=== PATIENT | male | born 1990 | race Caucasian/White ===

== ENCOUNTER 2017-04-27 15:24 | Inpatient (IN) | payer MEDICAID, OTHER ==
[~2017-04-27] VITALS: Ht 185.4 cm; Wt 120.7 kg
[2017-04-27] MEDS ORDERED: MORPHINE SULFATE 4 MG/ML CPJ (NOT FOR IM USE) IV STA (18:41)
[2017-04-27] MEDS ORDERED: PANTOPRAZOLE SODIUM 40 MG/VIAL IV STA (18:41)
[2017-04-27] MEDS ORDERED: SODIUM CHLORIDE 0.9% 1,000 ML IV ONE (18:41)
[2017-04-27] MEDS ORDERED: ONDANSETRON HCL 4MG/2ML VIAL IV STA (18:41)
[2017-04-27 19:09] LABS: HEMATOCRIT. 43.3 % (42.0-52.0); HEMOGLOBIN. 15.3 g/dL (14.0-18.0); MEAN CORPUSCULAR HEMOGLOBIN 31.9 pg (28.0-32.0); MEAN CORPUSCULAR VOLUME 90.3 fL (80.0-94.0); MEAN PLATELET VOLUME 7.8 fl (7.4-10.4); PLATELET 351 x1000/uL (130-400); RED CELL DISTRIBUTION WIDTH 13.1 % (11.6-14.6)
[2017-04-27 19:16] LABS: PROTHROMBIN TIME 10.6 sec (9.4-11.6)
[2017-04-27 19:24] LABS: CARBON DIOXIDE 26 mEq/L (21-32); CHLORIDE 104 mEq/L (98-107); ETHANOL BLOOD < 10 mg/dL
[2017-04-27 19:27] LABS: TROPONIN I < 0.02 ng/mL (0.00-0.04)
[2017-04-27] MEDS ORDERED: SODIUM CHLORIDE 0.9% 1000ML BAG (SEPSIS BOLUS) IV ONE (19:45)
[2017-04-27 19:59] LABS: PLATELET ESTIMATE NORMAL
[2017-04-27 20:02] LABS: CLARITY URINE CLEAR (CLEAR); COLOR URINE YELLOW (YELLOW); KETONES URINE 3+ (NEGATIVE); LEUKOCYTE ESTERASE URINE NEGATIVE (NEGATIVE); NITRITE URINE NEGATIVE (NEGATIVE); OCCULT BLOOD URINE NEGATIVE (NEGATIVE); PH URINE 8.5 (4.5-8.0); PROTEIN URINE NEGATIVE (NEGATIVE); SPECIFIC GRAVITY URINE 1.032 (1.005-1.030); UROBILINOGEN URINE 0.2 E.U./dL (0.2-1.0)
[2017-04-27] MEDS ORDERED: DIPHENHYDRAMINE 50MG/ML VIAL IV ONE (21:30)
[2017-04-27] MEDS ORDERED: METOCLOPRAMIDE HCL 10MG/2ML VIAL IV ONE (21:30)
[2017-04-27] MEDS ORDERED: ONDANSETRON HCL 4MG/2ML VIAL IV ONE (23:30)
[2017-04-28] VITALS (7 sets, daily range): BP systolic 132–145; BP diastolic 78–94
[2017-04-28] MEDS ORDERED: MAGNESIUM/ALUMINUM HYDROXIDE/SIMETHICONE 30ML UDC PO PRN (00:45)
[2017-04-28] MEDS ORDERED: CLONIDINE 0.1MG TABLET PO PRN (00:45)
[2017-04-28] MEDS ORDERED: DIPHENHYDRAMINE 50MG/ML VIAL IV PRN (00:45)
[2017-04-28] MEDS: ONDANSETRON HCL 4MG/2ML VIAL IV PRN ×2 (02:23→18:33)
[2017-04-28] MEDS: MORPHINE SULFATE 2 MG/ML CPJ (NOT FOR IM USE) IV PRN ×3 (02:23→23:45)
[2017-04-28] MEDS: LORAZEPAM 1MG TABLET PO PRN ×3 (02:23→23:45)
[2017-04-28] MEDS: SODIUM CHLORIDE 0.9% 1,000 ML IV SCH ×4 (02:25→23:46)
[2017-04-28 07:41] LABS: BASOPHILS % 0.1 % (0.0-2.0); HEMATOCRIT. 42.9 % (42.0-52.0); HEMOGLOBIN. 14.3 g/dL (14.0-18.0); LYMPHOCYTES % 9.4 % (20.0-50.0); MEAN CORPUSCULAR HEMOGLOBIN 30.7 pg (28.0-32.0); MEAN PLATELET VOLUME 8.1 fl (7.4-10.4); MONOCYTES % 8.1 % (2.0-8.0); NEUTROPHILS % 82.4 % (40.0-76.0); PLATELET 336 x1000/uL (130-400); RED BLOOD CELL COUNT 4.66 mill/uL (4.7-6.1); RED CELL DISTRIBUTION WIDTH 12.9 % (11.6-14.6)
[2017-04-28] MEDS: PANTOPRAZOLE SODIUM 40 MG/VIAL IV SCH (09:21)
[2017-04-28 14:57] LABS: *AMPHETAMINES SCREEN URINE NEGATIVE (NEGATIVE); *BARBITURATES SCREEN URINE NEGATIVE (NEGATIVE); *BENZODIAZEPINES SCREEN URINE NEGATIVE (NEGATIVE); *COCAINE SCREEN URINE NEGATIVE (NEGATIVE); CANNABINOID URINE SCREEN PRESUMTIVE POSITIVE (NEGATIVE); METHADONE URINE SCREEN NEGATIVE (NEGATIVE); OPIATES URINE SCREEN NEGATIVE (NEGATIVE); PHENCYCLIDINE URINE SCREEN NEGATIVE (NEGATIVE)
[2017-04-28] MEDS: ACETAMINOPHEN 325MG TABLET PO PRN (20:09)
[2017-04-29] VITALS: BP 140/87
[2017-04-29 04:00] VITALS: BP 132/89
[2017-04-29] MEDS: SODIUM CHLORIDE 0.9% 1,000 ML IV SCH ×2 (05:40→14:04)
[2017-04-29 08:00] VITALS: BP_SYST 148
[2017-04-29] MEDS: PANTOPRAZOLE SODIUM 40 MG/VIAL IV SCH (10:18)
[2017-04-29] MEDS: ONDANSETRON HCL 4MG/2ML VIAL IV PRN ×2 (10:34→22:02)
[2017-04-29 12:00] VITALS: BP 146/93
[2017-04-29] MEDS: ACETAMINOPHEN 325MG TABLET PO PRN (14:04)
[2017-04-29 16:00] VITALS: BP 145/97
[2017-04-29] MEDS ORDERED: SODIUM CHLORIDE 0.9% 1,000 ML IV SCH (18:29)
[2017-04-29 20:00] VITALS: BP 148/98
[2017-04-29] MEDS: MORPHINE SULFATE 2 MG/ML CPJ (NOT FOR IM USE) IV PRN (22:03)
[2017-04-30] VITALS: BP 135/85
[2017-04-30 04:00] VITALS: BP 142/92
[2017-04-30 08:00] VITALS: BP 135/96
[2017-04-30] MEDS: ACETAMINOPHEN 325MG TABLET PO PRN (09:27)
[2017-04-30] MEDS: PANTOPRAZOLE SODIUM 40 MG/VIAL IV SCH (09:27)
[2017-04-30 11:47] VITALS: BP 135/96
== END 2017-04-30 12:15 | disposition home or self-care (01) | DRG 249 ==
LOC: ER 15:31 → 6EST 19:49 → EDBEDREQ 19:58 → EDBEDREQTM 19:58 → EDBEDREQSVC 19:58 → ENRESERV 23:03
PROVIDERS: ADMIT Internal Medicine; ATTEND Internal Medicine
DX: K52.9 Noninfective gastroenteritis and colitis, unspecified (principal); I10 Essential (primary) hypertension; F41.9 Anxiety disorder, unspecified; Z87.11 Personal history of peptic ulcer disease; Z86.718 Personal history of other venous thrombosis and embolism
CPT/HCPCS: 36415; 71010; 74176; 80053; 80305; 81003; 83605; 83690; 84484; 85025; 85610; 86850; 86900; 87015; 87040; 87045; 87086; 87427; 87449; 87493; 93005; 96361; 96374; 96375; 96376; 99285; C9113; G0482; J1200; J2270; J2405; J2765; J7030; J7040

== ENCOUNTER 2017-07-12 16:28 | Emergency (ER) | payer SELFPAY ==
[~2017-07-12] VITALS: Ht 172.7 cm; Wt 109.0 kg
[2017-07-12 16:39] VITALS: BP 151/106
== END 2017-07-12 19:03 | disposition left against medical advice (07) ==
LOC: ER 16:42
DX: Z53.21 Procedure and treatment not carried out due to patient leaving prior to being seen by health care provider (principal)

== ENCOUNTER 2017-07-13 12:05 | Emergency (ER) | payer MEDICAID ==
[~2017-07-13] VITALS: Ht 177.8 cm; Wt 109.0 kg
[2017-07-13] MEDS ORDERED: ONDANSETRON HCL 4MG/2ML VIAL IV STA (12:20)
[2017-07-13] MEDS ORDERED: MORPHINE SULFATE 4 MG/ML CPJ (NOT FOR IM USE) IV STA (12:20)
[2017-07-13] MEDS ORDERED: SODIUM CHLORIDE 0.9% 1,000 ML IV ONE (12:20)
[2017-07-13 12:50] LABS: BASOPHILS % 0.2 % (0.0-2.0); HEMATOCRIT. 48.4 % (42.0-52.0); HEMOGLOBIN. 16.8 g/dL (14.0-18.0); LYMPHOCYTES % 12.9 % (20.0-50.0); MEAN CORPUSCULAR HEMOGLOBIN 31.5 pg (28.0-32.0); MEAN CORPUSCULAR VOLUME 90.7 fL (80.0-94.0); MEAN PLATELET VOLUME 7.7 fl (7.4-10.4); MONOCYTES % 13.3 % (2.0-8.0); NEUTROPHILS % 73.6 % (40.0-76.0); PLATELET 316 x1000/uL (130-400); RED BLOOD CELL COUNT 5.34 mill/uL (4.7-6.1); RED CELL DISTRIBUTION WIDTH 13.3 % (11.6-14.6)
[2017-07-13 12:57] LABS: INR 1.1; PROTHROMBIN TIME 10.9 sec (9.4-11.6)
[2017-07-13 13:01] LABS: CHLORIDE 103 mEq/L (98-107)
[2017-07-13 14:22] VITALS: BP 123/69
== END 2017-07-13 14:26 | disposition home or self-care (01) ==
LOC: ER 13:18
DX: R11.2 Nausea with vomiting, unspecified (principal); G43.A0 Cyclical vomiting, in migraine, not intractable; I10 Essential (primary) hypertension; Z86.718 Personal history of other venous thrombosis and embolism
CPT/HCPCS: 36415; 80053; 83690; 85025; 85610; 96361; 96374; 96375; 99284; J2270; J2405; J7030; Z7610

== ENCOUNTER 2017-07-14 05:27 | Emergency (ER) | payer MEDICAID ==
[~2017-07-14] VITALS: Ht 177.8 cm; Wt 109.0 kg
[2017-07-14] MEDS ORDERED: FAMOTIDINE 20MG/2ML VIAL IV STA (09:20)
[2017-07-14] MEDS ORDERED: SODIUM CHLORIDE 0.9% 1,000 ML IV ONE ×2 (09:20→12:58)
[2017-07-14] MEDS ORDERED: ONDANSETRON HCL 4MG/2ML VIAL IV STA ×3 (09:20→14:42)
[2017-07-14] MEDS ORDERED: MORPHINE SULFATE 4 MG/ML CPJ (NOT FOR IM USE) IV NR (09:41)
[2017-07-14 09:47] LABS: HEMATOCRIT. 48.1 % (42.0-52.0); HEMOGLOBIN. 16.5 g/dL (14.0-18.0); MEAN CORPUSCULAR HEMOGLOBIN 31.3 pg (28.0-32.0); MEAN CORPUSCULAR VOLUME 91.2 fL (80.0-94.0); PLATELET 324 x1000/uL (130-400); RED BLOOD CELL COUNT 5.28 mill/uL (4.7-6.1); RED CELL DISTRIBUTION WIDTH 13.4 % (11.6-14.6)
[2017-07-14 09:53] LABS: CHLORIDE 97 mEq/L (98-107)
[2017-07-14 09:54] LABS: INR 1.1
[2017-07-14 09:57] LABS: ETHANOL BLOOD < 10 mg/dL
[2017-07-14 10:18] LABS: PLATELET ESTIMATE NORMAL
[2017-07-14 10:46] LABS: CLARITY URINE CLEAR (CLEAR); COLOR URINE YELLOW (YELLOW); KETONES URINE 4+ (NEGATIVE); LEUKOCYTE ESTERASE URINE NEGATIVE (NEGATIVE); NITRITE URINE NEGATIVE (NEGATIVE); OCCULT BLOOD URINE NEGATIVE (NEGATIVE); PROTEIN URINE 1+ (NEGATIVE)
[2017-07-14] MEDS ORDERED: KETOROLAC 30MG/ML VIAL IV STA (13:03)
[2017-07-14] MEDS ORDERED: IOHEXOL-300 100 ML BOTTLE ONE (14:17)
[2017-07-14] MEDS ORDERED: METOCLOPRAMIDE HCL 10MG/2ML VIAL IM STA (14:19)
[2017-07-14] MEDS ORDERED: ONDANSETRON HCL 4MG/2ML VIAL IM ONE (14:30)
[2017-07-14] MEDS ORDERED: METOCLOPRAMIDE HCL 10MG/2ML VIAL IV STA (14:42)
[2017-07-14 16:14] LABS: *AMPHETAMINES SCREEN URINE NEGATIVE (NEGATIVE); *BARBITURATES SCREEN URINE NEGATIVE (NEGATIVE); *BENZODIAZEPINES SCREEN URINE NEGATIVE (NEGATIVE); *COCAINE SCREEN URINE NEGATIVE (NEGATIVE); CANNABINOID URINE SCREEN PRESUMTIVE POSITIVE (NEGATIVE); METHADONE URINE SCREEN NEGATIVE (NEGATIVE); OPIATES URINE SCREEN PRESUMTIVE POSITIVE (NEGATIVE); PHENCYCLIDINE URINE SCREEN NEGATIVE (NEGATIVE)
[2017-07-14 17:35] VITALS: BP 144/98
== END 2017-07-14 17:35 | disposition home or self-care (01) ==
LOC: ER 11:03
DX: G43.A0 Cyclical vomiting, in migraine, not intractable (principal); R10.9 Unspecified abdominal pain; F12.10 Cannabis abuse, uncomplicated; I10 Essential (primary) hypertension; Z86.718 Personal history of other venous thrombosis and embolism
CPT/HCPCS: 36415; 74177; 80053; 80305; 81003; 83690; 85025; 85610; 96361; 96374; 96375; 96376; 99285; G0482; J1885; J2270; J2405; J2765; J3490; J7030; Q9967; Z7610

== ENCOUNTER 2017-07-17 15:47 | Emergency (ER) | payer MEDICAID ==
[~2017-07-17] VITALS: Ht 185.4 cm; Wt 150.0 kg
[2017-07-17] MEDS ORDERED: MAGNESIUM/ALUMINUM HYDROXIDE/SIMETHICONE 30ML UDC PO STA (17:33)
[2017-07-17] MEDS ORDERED: KETOROLAC 30MG/ML VIAL IV STA (17:33)
[2017-07-17] MEDS ORDERED: VISCOUS LIDOCAINE 2% 15 ML UDC PO STA (17:33)
[2017-07-17] MEDS ORDERED: DICYCLOMINE 10 MG/5 ML ORAL SYR PO STA (17:33)
[2017-07-17] MEDS ORDERED: FAMOTIDINE 20MG/2ML VIAL IV STA (17:33)
[2017-07-17] MEDS ORDERED: ONDANSETRON HCL 4MG/2ML VIAL IV STA (17:33)
[2017-07-17] MEDS ORDERED: DEXT 5%/0.45% NACL 500ML 500 ML IV ONE (17:45)
[2017-07-17 17:58] LABS: BASOPHILS % 0.2 % (0.0-2.0); EOSINOPHILS % 0.1 % (0.0-5.0); HEMATOCRIT. 49.2 % (42.0-52.0); HEMOGLOBIN. 17.2 g/dL (14.0-18.0); LYMPHOCYTES % 11.9 % (20.0-50.0); MEAN CORPUSCULAR HEMOGLOBIN 31.5 pg (28.0-32.0); MEAN PLATELET VOLUME 7.9 fl (7.4-10.4); MONOCYTES % 9.2 % (2.0-8.0); NEUTROPHILS % 78.6 % (40.0-76.0); PLATELET 412 x1000/uL (130-400); RED BLOOD CELL COUNT 5.46 mill/uL (4.7-6.1)
[2017-07-17 18:03] LABS: CHLORIDE 101 mEq/L (98-107)
[2017-07-17 18:05] LABS: INR 1.2
[2017-07-17] MEDS ORDERED: POTASSIUM CHLORIDE 20MEQ TABLET SR PO ONE (18:30)
[2017-07-17] MEDS ORDERED: MORPHINE SULFATE 4 MG/ML CPJ (NOT FOR IM USE) IV ONE (18:30)
[2017-07-17] MEDS ORDERED: HALOPERIDOL LACTATE 5MG/ML VIAL IM ONE (18:45)
[2017-07-17 20:05] VITALS: BP 132/83
== END 2017-07-17 20:15 | disposition home or self-care (01) ==
LOC: ER 15:47
DX: T40.7X5A Adverse effect of cannabis (derivatives), initial encounter (principal); I10 Essential (primary) hypertension; M54.5 Low back pain; F12.90 Cannabis use, unspecified, uncomplicated; Y92.89 Other specified places as the place of occurrence of the external cause; Z86.718 Personal history of other venous thrombosis and embolism
CPT/HCPCS: 36415; 80053; 83690; 85025; 85610; 96361; 96372; 96374; 96375; 99284; J1630; J1885; J2270; J2405; J3490; J7060; Z7610

== ENCOUNTER 2017-07-17 23:58 | Emergency (ER) | payer MEDICAID ==
[~2017-07-17] VITALS: Ht 177.8 cm; Wt 105.0 kg
[2017-07-18] MEDS ORDERED: SODIUM CHLORIDE 0.9% 1,000 ML IV ONE (00:30)
[2017-07-18] MEDS ORDERED: HALOPERIDOL LACTATE 5MG/ML VIAL IM ONE ×2 (00:30→04:30)
[2017-07-18] MEDS ORDERED: CAPSAICIN 0.075% CREAM 60GM TOP PRN (00:30)
[2017-07-18] MEDS ORDERED: ONDANSETRON HCL 4MG/2ML VIAL IM ONE (00:30)
[2017-07-18 00:42] LABS: CLARITY URINE CLEAR (CLEAR); COLOR URINE DARK YELLOW (YELLOW); KETONES URINE 2+ (NEGATIVE); LEUKOCYTE ESTERASE URINE NEGATIVE (NEGATIVE); NITRITE URINE NEGATIVE (NEGATIVE); OCCULT BLOOD URINE NEGATIVE (NEGATIVE); PROTEIN URINE TRACE (NEGATIVE); SPECIFIC GRAVITY URINE 1.024 (1.005-1.030)
[2017-07-18 04:15] VITALS: BP 160/65
== END 2017-07-18 04:53 | disposition home or self-care (01) ==
LOC: ER 23:58
DX: T40.7X5A Adverse effect of cannabis (derivatives), initial encounter (principal); Z86.718 Personal history of other venous thrombosis and embolism; Z87.891 Personal history of nicotine dependence; Y92.89 Other specified places as the place of occurrence of the external cause
CPT/HCPCS: 81003; 96360; 96372; 99285; J1630; J2405; J7030; Z7610; 93005

== ENCOUNTER 2017-11-09 05:09 | Emergency (ER) | payer MEDICAID ==
[~2017-11-09] VITALS: Ht 177.8 cm; Wt 109.0 kg
[2017-11-09] MEDS ORDERED: IBUPROFEN 600MG TABLET PO ONE (06:45)
[2017-11-09] MEDS ORDERED: BACITRACIN ZINC OINT UDPKT TOP ONE (09:15)
[2017-11-09 09:45] VITALS: BP 143/78
[2017-11-09] MEDS ORDERED: HYDROCODONE/ACETAMINOPHEN 5/325MG TABLET PO ONE (09:45)
== END 2017-11-09 10:04 | disposition home or self-care (01) ==
LOC: ER 05:09
DX: L02.811 Cutaneous abscess of head [any part, except face] (principal); F12.10 Cannabis abuse, uncomplicated; Z86.718 Personal history of other venous thrombosis and embolism
CPT/HCPCS: 10060; 70486; 99284; Z7610

== ENCOUNTER 2023-03-02 13:20 | Emergency (ER) | payer MEDICAID ==
[~2023-03-02] VITALS: Ht 177.8 cm; Wt 114.0 kg
[2023-03-02 13:28] VITALS: BP 122/97; PULSE 83; RESP 18; TEMP 98.5; O2SAT 98
== END 2023-03-02 17:29 | disposition left against medical advice (07) ==
LOC: ER 13:32
DX: R06.02 Shortness of breath (principal); Z53.21 Procedure and treatment not carried out due to patient leaving prior to being seen by health care provider
CPT/HCPCS: 93005; 99281